=== PATIENT | female | born 1975 | race Caucasian/White ===

== ENCOUNTER 2024-02-11 17:24 | Emergency (ER) | payer MEDICAID ==
[~2024-02-11] VITALS: Ht 162.6 cm; Wt 75.0 kg
[2024-02-11 17:29] VITALS: BP 228/115; PULSE 87; RESP 18; TEMP 98.3; O2SAT 99
[2024-02-11] MEDS ORDERED: AMLO5TAB88 MT (17:44)
[2024-02-11] MEDS ORDERED: CLOT15CR27 TP (17:46)
== END 2024-02-11 18:00 | disposition home or self-care (01) ==
LOC: ER 17:24
DX: L70.9 Acne, unspecified (principal); I10 Essential (primary) hypertension
CPT/HCPCS: 99283